=== PATIENT | female | born 1980 | race Caucasian/White ===

== ENCOUNTER 2020-06-25 13:35 | Inpatient (IN) | payer BC, MEDICAID, OTHER ==
[2020-06-25] MEDS ORDERED: LORazepam 1 MG TAB PO STA (14:29)
[2020-06-25 15:13] LABS: Amphetamine Screen,Urine Not Detected (NotDetected); Barbiturate Screen,Urine Not Detected (NotDetected); Benzodiazepines Screen,Urine Not Detected (NotDetected); Cocaine Screen,Urine Not Detected (NotDetected); Methadone Screen, Urine Not Detected (NotDetected); Opiate Screen,Urine Not Detected (NotDetected); Oxycodone Screen, Urine Not Detected (NotDetected); Phencyclidine Screen,Urine Not Detected (NotDetected); Tricyclic Antidepressant,Urine Not Detected (NotDetected); Urn Cannabinoid Scrn Detected (NotDetected)
[2020-06-25] MEDS ORDERED: LORazepam 2 MG/ML INJ IV PRN ×3 (17:08)
[2020-06-25] MEDS ORDERED: THIAMINE 100 MG/ML 2 ML VIAL IM STA (17:08)
[2020-06-25] MEDS ORDERED: THIAMINE 100 MG TAB PO SCH (17:30)
--- NOTE | 2020-06-25 17:33 | ED ---
General Adult HPI - General Chief complaint: Psychiatric Symptoms Stated complaint: EPS eval Time Seen by Provider: 06/25/20 14:04 Source: patient, family, RN notes reviewed, old records reviewed Mode of arrival: ambulatory Limitations: no limitations - History of Present Illness Initial comments: 39-year-old female patient presents ED for evaluation. Patient does not currently have any psychiatric diagnoses exam any psychiatric medications. Patient reports that since she was a child she has had a worsening her head which tells her to do things. Patient was that she has been a good job of ignoring it however the last year versus been telling her to hurt her . She bought sleeping pills. She is thinking about driving him. She denies anyt meena hurt herself. She has had reactions to hurt any other people. She denies any other acute complaints. She does also report that he has been drinking daily. She denies ever going through withdrawals prior. Denies any other acute complaints at this time. Systemic: Pt denies fatigue, fever/chills, rash. Pt denies weakness, night sweats, weight loss. Neuro: Pt denies headache, visual disturbances, syncope or pre-syncope. HEENT: Pt denies ocular discharge or irritation, otalgia, rhinorrhea, pharyngitis or notable lymphadenopathy. Cardiopulmonary: Pt denies chest pain, SOB, heart palpitations, dyspnea on exertion. Abdominal/GI: Pt denies abdominal pain, n/v/d. : Pt denies dysuria, burning w/ urination, frequency/urgency. Denies new onset urinary or bowel incontinence. MSK: Pt denies myalgia, loss of strength or function in extremities. Neuro: Pt denies new onset weakness, paresthesias. - Related Data Home Medications Medication Instructions Recorded Confirmed Ibuprofen [Motrin Ib] 800 mg PO Q8H PRN 06/25/20 06/25/20 Allergies Allergy/AdvReac Type Severity Reaction Status Date / Time No Known Allergies Allergy Verified 06/25/20 15:40 Review of Systems ROS Statement: Those systems with pertinent positive or pertinent negative responses have been documented in the HPI. ROS Other: All systems not noted in ROS Statement are negative. Past Medical History Past Medical History: No Reported History History of Any Multi-Drug Resistant Organisms: None Reported Past Surgical History: Section Additional Past Surgical History / Comment(s): cs x 2 Past Psychological History: No Psychological Hx Reported Smoking Status: Never smoker Past Alcohol Use History: Daily, Heavy Past Drug Use History: Marijuana General Exam - General Exam Comments Initial Comments: Constitutional: NAD, AOX3, Pt has pleasant affect. HEENT: NC/AT, trachea midline, neck supple, no lymphadenopathy. Posterior pharynx non erythematous, without exudates. External ears appear normal, without discharge. Mucous membranes moist. Eyes PERRLA, EOM intact. There is no scleral icterus. No pallor noted. Cardiopulmonary: RRR, no murmurs, rubs or gallops, no JVD noted. Lungs CTAB in anterior and posterior sher. No peripheral edema. Abdominal exam: Abdomen soft and non-distended. Abdomen non-tender to palpation in all 4 quadrants. Bowel sounds active in LLQ. No hepatosplenomegaly. No ecchymosis Neuro: CN II-XII intact. No nuchal rigidity. MSK: Full active ROM in upper and lower extremities, 5/5 stregnth. Limitations: no limitations Course Vital Signs 06/25/20 06/25/20 06/25/20 13:43 14:48 15:14 Temperature 99.0 F Pulse Rate 108 H Respiratory 22 18 18 Rate Blood Pressure 145/104 O2 Sat by Pulse 99 Oximetry Medical Decision Making - Medical Decision Making 39-year-old female patient to ED for evaluation of hearing voices that are not there. Has been going on for years. Patient will signs are stable, afebrile. Physical exam negative for acute pathology. Patient of the EPS recommended for admission. Patient signed herself in this hospital. Patient will be placed on a [facility] protocol with admission. case disucssed with Dr. Yuan. - Lab Data Lab Results 06/25/20 Range/Units 14:53 Urine Opiates Screen Not Detected (NotDetected) Ur Oxycodone Screen Not Detected (NotDetected) Urine Methadone Screen Not Detected (NotDetected) Ur Propoxyphene Screen Not Detected (NotDetected) Ur Barbiturates Screen Not Detected (NotDetected) U Tricyclic Antidepress Not Detected (NotDetected) Ur Phencyclidine Scrn Not Detected (NotDetected) Ur Amphetamines Screen Not Detected (NotDetected) U Methamphetamines Scrn Not Detected (NotDetected) U Benzodiazepines Scrn Not Detected (NotDetected) Urine Cocaine Screen Not Detected (NotDetected) U Marijuana (THC) Screen Detected H (NotDetected) Disposition Clinical Impression: Psychiatric disorder Disposition: ADMITTED IP TO THIS HOSP Condition: Serious Is patient prescribed a controlled substance at d/c from ED?: No Referrals: Rebecca Woodward MD [Primary Care Provider] - 1-2 days
[2020-06-25 17:39] LABS: Basophils % (A) 0 %; Eosinophils # (A) 0.3 k/uL (0-0.7); Eosinophils % (A) 2 %; HGB 14.2 gm/dL (11.4-16.0); Lymphocytes # (A) 3.3 k/uL (1.0-4.8); Lymphocytes % (A) 27 %; MCHC 31.6 g/dL (31.0-37.0); MCV 91.9 fL (80.0-100.0); Mean Platelet Volume 7.1; Monocytes # (A) 0.5 k/uL (0-1.0); Monocytes % (A) 4 %; Neutrophils # (A) 7.8 k/uL (1.3-7.7); Neutrophils % (A) 65 %; Platelet Count 288 k/uL (150-450); RBC 4.89 m/uL (3.80-5.40); RDW 12.9 % (11.5-15.5); WBC 12.1 k/uL (3.8-10.6)
[2020-06-25 17:45] LABS: African American GFR (CKD) >90 (>60 ml/min/1.73 sqM); Anion Gap 7 mmol/L; Blood Urea Nitrogen 8 mg/dL (7-17); Calcium 8.8 mg/dL (8.4-10.2); Carbon Dioxide 25 mmol/L (22-30); Chloride 106 mmol/L (98-107); Glucose 105 mg/dL (74-99); Non-African American GFR(CKD) >90 (>60 ml/min/1.73 sqM); Potassium 3.2 mmol/L (3.5-5.1); Sodium 138 mmol/L (137-145)
[2020-06-25] MEDS ORDERED: POTASSIUM CHLORIDE ER 20 MEQ TAB.ER PO STA (18:14)
[2020-06-25] MEDS ORDERED: POTASSIUM CHLORIDE ER 10 MEQ TAB.ER.PRT PO STA (18:19)
[2020-06-25] MEDS ORDERED: IBUPROFEN 600 MG TAB PO STA (20:07)
[2020-06-25] MEDS ORDERED: ACETAMINOPHEN TAB 325 MG TAB PO PRN (23:42)
[2020-06-25] MEDS ORDERED: MAGNESIUM HYDROXIDE 2,400 MG/10 ML CUP PO PRN (23:42)
[2020-06-25] MEDS ORDERED: MAG HYDROX/AL HYDROX/SIMETH 30 ML CUP PO PRN (23:42)
[2020-06-26] MEDS: LORazepam 1 MG TAB PO PRN (00:41)
[2020-06-26 09:22] LABS: Basophils # (A) 0.1 k/uL (0-0.2); Basophils % (A) 1 %; Eosinophils # (A) 0.2 k/uL (0-0.7); Eosinophils % (A) 2 %; HCT 45.7 % (34.0-46.0); Lymphocytes # (A) 2.4 k/uL (1.0-4.8); Lymphocytes % (A) 25 %; MCH 30.6 pg (25.0-35.0); MCHC 32.8 g/dL (31.0-37.0); MCV 93.1 fL (80.0-100.0); Mean Platelet Volume 7.1; Monocytes # (A) 0.4 k/uL (0-1.0); Monocytes % (A) 4 %; Neutrophils # (A) 6.4 k/uL (1.3-7.7); Neutrophils % (A) 67 %; Platelet Count 312 k/uL (150-450); RBC 4.91 m/uL (3.80-5.40); RDW 12.4 % (11.5-15.5); WBC 9.6 k/uL (3.8-10.6)
[2020-06-26 09:54] LABS: ALT 22 U/L (4-34); AST 27 U/L (14-36); African American GFR (CKD) >90 (>60 ml/min/1.73 sqM); Alkaline Phosphatase 78 U/L (38-126); Anion Gap 8 mmol/L; Blood Urea Nitrogen 7 mg/dL (7-17); Calcium 8.7 mg/dL (8.4-10.2); Carbon Dioxide 26 mmol/L (22-30); Chloride 104 mmol/L (98-107); Glucose 142 mg/dL (74-99); Non-African American GFR(CKD) >90 (>60 ml/min/1.73 sqM); Sodium 138 mmol/L (137-145); Total Bilirubin 0.7 mg/dL (0.2-1.3); Total Protein 7.2 g/dL (6.3-8.2)
--- NOTE | 2020-06-26 13:57 | P.CONS ---
History of Present Illness - Reason for Consult Leukocytosis - History of Present Illness Patient is a pleasant 39-year-old female is admitted for from major depression to psychiatric floor. Patient is clinically doing well today. Patient is bit to hypokalemic potassium was supplemented and normalized potassium today patient white blood cell count is bit elevated but there is no evidence of infection any dysuria nausea vomiting diarrhea, increased urinary frequency or cough. Repeat blood count is within normal limits. Patient does drink alcohol heavily but doesn't drink alcohol on a daily basis doesn't have any withdrawals at this time. Patient started drinking heavily since September. Does admit to using marijuana. Review of Systems REVIEW OF SYSTEMS: CONSTITUTIONAL: No fever, no malaise, no fatigue. HEENT: No recent visual problems or hearing problems. Denied any sore throat. CARDIOVASCULAR: No chest pain, orthopnea, PND, no palpitations, no syncope. PULMONARY: No shortness of breath, no cough, no hemoptysis. GASTROINTESTINAL: No diarrhea, no nausea, no vomiting, no abdominal pain. NEUROLOGICAL: No headaches, no weakness, no numbness. HEMATOLOGICAL: Denies any bleeding or petechiae. GENITOURINARY: Denies any burning micturition, frequency, or urgency. MUSCULOSKELETAL/RHEUMATOLOGICAL: Denies any joint pain, swelling, or any muscle pain. ENDOCRINE: Denies any polyuria or polydipsia. The rest of the 14-point review of systems is negative. Past Medical History Past Medical History: No Reported History History of Any Multi-Drug Resistant Organisms: None Reported Past Surgical History: Section Additional Past Surgical History / Comment(s): cs x 2 Past Psychological History: No Psychological Hx Reported Smoking Status: Never smoker Past Alcohol Use History: Daily, Heavy Past Drug Use History: Marijuana Medications and Allergies Home Medications Medication Instructions Recorded Confirmed Type Ibuprofen [Motrin Ib] 800 mg PO Q8H PRN 06/25/20 06/25/20 History Allergies Allergy/AdvReac Type Severity Reaction Status Date / Time No Known Allergies Allergy Verified 06/25/20 15:40 Physical Exam Vitals: Vital Signs Temp Pulse Pulse Resp BP BP Pulse Ox 06/26/20 13:17 97.6 F 06/26/20 01:27 98.3 F 95 20 145/90 06/26/20 00:35 98.0 F 100 18 148/103 98 06/25/20 23:59 98.2 F 87 18 137/87 97 06/25/20 22:00 84 18 141/89 97 06/25/20 20:39 98.3 F 84 20 149/87 98 06/25/20 19:00 18 06/25/20 18:00 18 06/25/20 17:00 18 06/25/20 15:14 18 06/25/20 14:48 18 Intake and Output 06/25/20 06/26/20 06/26/20 22:59 06:59 14:59 Other: Weight 146.057 kg PHYSICAL EXAMINATION: GENERAL: The patient is alert and oriented x3, not in any acute distress. Well developed, well nourished. HEENT: Pupils are round and equally reacting to light. EOMI. No scleral icterus. No conjunctival pallor. Normocephalic, atraumatic. No pharyngeal erythema. No thyromegaly. CARDIOVASCULAR: S1 and S2 present. No murmurs, rubs, or gallops. PULMONARY: Chest is clear to auscultation, no wheezing or crackles. ABDOMEN: Soft, nontender, nondistended, normoactive bowel sounds. No palpable organomegaly. MUSCULOSKELETAL: No joint swelling or deformity. EXTREMITIES: No cyanosis, clubbing, or pedal edema. NEUROLOGICAL: Gross neurological examination did not reveal any focal deficits. SKIN: No rashes. Results CBC & Chem 7: 06/26/20 08:54 06/26/20 08:54 Labs: Abnormal Lab Results - Last 24 Hours (Table) 06/25/20 06/25/20 06/25/20 Range/Units 14:53 17:30 17:30 WBC 12.1 H (3.8-10.6) k/uL Neutrophils # 7.8 H (1.3-7.7) k/uL Potassium 3.2 L (3.5-5.1) mmol/L Glucose 105 H (74-99) mg/dL U Marijuana (THC) Screen Detected H (NotDetected) 06/26/20 Range/Units 08:54 WBC (3.8-10.6) k/uL Neutrophils # (1.3-7.7) k/uL Potassium (3.5-5.1) mmol/L Glucose 142 H (74-99) mg/dL U Marijuana (THC) Screen (NotDetected) Assessment and Plan Plan: -eukocytosis no evidence of infection reactive in nature and no further intervention is necessary. -Hypokalemia potassium was replaced -Nicotine abuse and marijuana use: Counseling was provided -Obesity -Depression management as per primary service
[2020-06-26] MEDS ORDERED: OLANZapine 7.5 MG TAB PO ONE (20:30)
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
[2020-06-27] MEDS: OLANZapine 10 MG TAB PO SCH ×2 (09:38→22:00)
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
[2020-06-28] MEDS: OLANZapine 10 MG TAB PO SCH (09:29)
[2020-06-28] MEDS: LORazepam 1 MG TAB PO PRN ×2 (09:29→13:31)
[2020-06-28] MEDS ORDERED: traZODone HCL 50 MG TAB PO PRN (10:42)
[2020-06-28] MEDS: IBUPROFEN 600 MG TAB PO PRN (11:23)
[2020-06-28] MEDS: SERTRALINE 50 MG TAB PO SCH (11:23)
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
[2020-06-28] MEDS: OLANZapine 5 MG TAB PO SCH (21:43)
[2020-06-28] MEDS: carvediloL 3.125 MG TAB PO SCH (21:43)
[2020-06-29] MEDS: SERTRALINE 50 MG TAB PO SCH (09:02)
[2020-06-29] MEDS: carvediloL 3.125 MG TAB PO SCH ×2 (09:02→17:16)
[2020-06-29] MEDS: OLANZapine 5 MG TAB PO SCH (09:02)
--- NOTE | 2020-06-29 09:21 | P.PN ---
Progress Note - Text Progress Note Date: 06/29/20 Interval History: Patient was seen after taking her medications this morning and was directable and agreeable to speak with content writer in the office. Patient appeared to be calmer this morning and more appropriate with content writer. She claims that she was able to speak with her yesterday on the phone and claims that he is being more supportive with her. She also claims that he is willing to go into family therapy to discuss their problems. She states that he is finding more and more things that she has neglected over time to pay and states that "he is actually handling it pretty well". She claims that her anxiety is still elevated and her mood is still fairly depressed however improving. She states that she is hearing her own thoughts telling her "you deserve to be punished". She states that she is able to ignore it however. She states that she was able to get better sleep last night. She claims that she has been going to groups and participate as best as she can. At this time patient denies any suicidal or homical ideations, intent or plan. Patient denies any auditory, visual hallucinations and denies any paranoia or delusions. Patient denies any side effects from the medications and has been compliant with meds. Mental Status Exam: General Appearance: Patient appears to be overweight, stated age is alert, directable, and attempts to be cooperative. Less tearful today. Behavior: Patient is calmly seated without any agitated behavior. Speech: Patient's speech is fluent and nonpressured. Mood/Affect: Mood is depressed and anxious, improving mildly, affect is congruent Suicidality/Homicidality: Patient denies having any suicidal or homicidal ideation intent or plan. Perceptions: Patient denies any visual hallucinations and denies any auditory hallucinations Though content/process: There is no evidence of any delusional thought content and thought process is linear and goal-directed. Focused on her symptoms. Memory and concentration: AOX3, grossly intact for the purposes of this session Judgment and insight: Poor, Improving mildly Assessment Major depressive disorder, recurrent, severe PTSD Alcohol use disorder Cannabis use disorder Plan: -Patient continues to meet criteria for inpatient psychiatric admission for symptom stabilization and safety. Patient has signed adult voluntary form and medication consent and was placed in patient's chart. -Medications: Increased Zoloft 100 mg daily for mood/anxiety. Decreased Zyprexa down to 5 mg daily for mood stabilization/mood adjunct. Continue with trazodone 50 mg daily at bedtime when necessary for insomnia. -Continue with CIWA protocol with when necessary Ativan. -When necessary Ativan and Geodon for agitation/aggression. -NRT - not needed as patient does not smoke. -SW on board for discharge planning. Encouraged the patient to participate in milieu. Likely discharge in 1-2 days back home. Patient is encouraged to do family/couples counseling on discharge. Patient will require a family meeting prior to discharge.
[2020-06-29 15:19] VITALS: RESP 16
[2020-06-29] MEDS ORDERED: OLANZapine 5 MG TAB PO SCH (21:00)
[2020-06-29] MEDS: LORazepam 1 MG TAB PO PRN (22:39)
[2020-06-30] MEDS ORDERED: SERTRALINE 100 MG TAB PO SCH (09:00)
[2020-06-30] MEDS: IBUPROFEN 600 MG TAB PO PRN (09:04)
[2020-06-30] MEDS: carvediloL 3.125 MG TAB PO SCH (09:05)
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
[2020-06-30 13:33] VITALS: TEMP 97.2
[2020-06-30 14:09] VITALS: BP 135/99; PULSE 127
== END 2020-06-30 14:00 | disposition home or self-care (01) | DRG 885 ==
LOC: EC 13:35 → 3MHU 23:37
PROVIDERS: ADMIT Psychiatry & Neurology Psychiatry; ATTEND Psychiatry & Neurology Psychiatry
DX: F33.3 Major depressive disorder, recurrent, severe with psychotic symptoms (principal); Z68.42 Body mass index [BMI] 45.0-49.9, adult; F10.239 Alcohol dependence with withdrawal, unspecified; R45.851 Suicidal ideations; F41.0 Panic disorder [episodic paroxysmal anxiety]; F12.10 Cannabis abuse, uncomplicated; F43.10 Post-traumatic stress disorder, unspecified; G47.00 Insomnia, unspecified; K58.9 Irritable bowel syndrome, unspecified; R51.9 Headache, unspecified; D72.829 Elevated white blood cell count, unspecified; E66.9 Obesity, unspecified; E87.6 Hypokalemia; E88.81 Metabolic syndrome and other insulin resistance; Z59.9 Problem related to housing and economic circumstances, unspecified; Z62.810 Personal history of physical and sexual abuse in childhood; Z79.899 Other long term (current) drug therapy; Z71.6 Tobacco abuse counseling; F17.210 Nicotine dependence, cigarettes, uncomplicated; Z71.41 Alcohol abuse counseling and surveillance of alcoholic; Z71.51 Drug abuse counseling and surveillance of drug abuser
CPT/HCPCS: 36415; 80048; 80053; 80306; 81025; 82075; 83735; 84443; 85025; 93005; 96374; 99285